=== PATIENT | female | born 1985 | race Caucasian/White ===

== ENCOUNTER → 2016-05-18 | Outpatient (CLI) | payer OTHER | LOC: M SMT 08:55 | PROVIDERS: ATTEND Physician Assistant | DX: J01.01 Acute recurrent maxillary sinusitis (principal) ==

== ENCOUNTER → 2016-08-16 | Outpatient (REF) | payer OTHER | LOC: M LAB REF 17:22 | PROVIDERS: ATTEND Physician Assistant Medical | DX: R35.0 Frequency of micturition (principal) ==

== ENCOUNTER → 2017-01-08 | Outpatient (REF) | payer OTHER | LOC: M LAB REF 18:14 | PROVIDERS: ATTEND Physician Assistant | DX: J02.9 Acute pharyngitis, unspecified (principal) ==

== ENCOUNTER → 2017-03-29 | Outpatient (CLI) | payer OTHER | LOC: M SMT 11:01 | DX: D80.8 Other immunodeficiencies with predominantly antibody defects (principal) ==

== ENCOUNTER → 2017-04-11 | Outpatient (REF) | payer OTHER ==
[2017-04-12 15:50] LABS: INFLUENZA A AMPLIFICATION NEGATIVE (NEGATIVE); INFLUENZA B AMPLIFICATION NEGATIVE (NEGATIVE)
== END ==
LOC: M LAB REF 04-12 12:50
DX: J06.9 Acute upper respiratory infection, unspecified (principal)

== ENCOUNTER → 2017-12-23 | Outpatient (REF) | payer OTHER ==
[2017-12-23 18:27] LABS: THYROXINE (T4) 11.2 UG/DL (4.5-12.0)
[2017-12-23 18:27] LABS: FREE T3 2.3 PG/ML (2.2-4.0)
== END ==
LOC: M LABSMT 16:53
DX: E07.89 Other specified disorders of thyroid (principal)
CPT/HCPCS: 84443

== ENCOUNTER → 2018-03-10 | Outpatient (CLI) | payer OTHER ==
--- NOTE | 2018-03-10 15:44 | REP ---
Clinical: Anatomical evaluation. Comparison: 02/08/2018 . Findings: Examination demonstrates a single live intrauterine in cephalic presentation. motion is identified by technologist. Placenta is noted anterior and grade 1 without evidence for placenta previa or abruption. Amniotic fluid volume is normal. Cervix measures 4.4 cm in length and appears closed. Nuchal cord cannot be excluded. Gestational age by LMP 25 weeks 3 days with KECIA 06/20/2018 . Gestational age by current measurements 25 weeks 5 days with KECIA 06/18/2018 . FHR equals 141 beats per minute. Estimated weight 872 grams ( 59 percentile). Anatomical assessment demonstrates normal structures including cranium, choroid plexus, cavum, cerebellum/posterior fossa, facial features, lungs, four-chamber heart/left ventricular outflow tract, diaphragm, stomach, cord insertion/three-vessel cord, kidneys/bladder, spine, and extremities. Impression: 1. Single live intrauterine in cephalic presentation demonstrating appropriate interval growth. Limited evaluation of the right cardiac ventricular outflow tract again noted. Remainder of the anatomical assessment is complete and normal. 2. Nuchal cord cannot be excluded. Electronically Signed by Julio Mejía MD 03/10/2018 03:35 P
== END ==
LOC: M SMT 14:39
PROVIDERS: ATTEND Advanced Practice Midwife
DX: Z36.89 Encounter for other specified antenatal screening (principal); Z3A.25 25 weeks gestation of pregnancy

== ENCOUNTER → 2018-03-30 | Outpatient (CLI) | payer OTHER ==
[2018-03-30 13:42] LABS: HEMATOCRIT 35.9 % (36.0-47.0); HEMOGLOBIN 11.9 g/dl (12.0-15.5); MEAN CORPUSCULAR HEMOGLOBIN 28.8 pg (27.0-33.0); MEAN CORPUSCULAR HGB CONC 33.1 g/dl (32.0-36.5); MEAN CORPUSCULAR VOLUME 86.9 fl (80.0-96.0); PLATELET COUNT, AUTOMATED 251 10^3/uL (150-450); RED BLOOD COUNT 4.13 10^6/uL (4.00-5.40); WHITE BLOOD COUNT 10.8 10^3/uL (4.0-10.0)
--- NOTE | 2018-03-31 08:53 | REP ---
Clinical: Anatomical evaluation. Comparison: 03/10/2018. Findings: Examination demonstrates a single live intrauterine in breech presentation. motion is identified by technologist. Placenta is noted anterior and grade I without evidence for placenta previa or abruption. Amniotic fluid volume is normal. Cervix measures 3.2 cm in length and appears closed. Nuchal cord noted. Gestational age by LMP 20 weeks 2 days with KECIA 06/20/2018 . Gestational age by current measurements 28 weeks 4 days with KECIA 06/18/2018 . FHR equals 153 beats per minute. Estimated weight 1264 grams ( 52nd percentile). Amniotic fluid index: 12.7 cm Umbilical cord SD ratio: 2.83 Anatomical assessment demonstrates normal structures including cranium, choroid plexus, cavum, cerebellum/posterior fossa, facial features, lungs, four-chamber heart/right ventricular outflow tract, diaphragm, stomach, three-vessel cord, kidneys/bladder, and lower extremities. Impression: 1. Single live intrauterine in breech presentation demonstrating appropriate interval growth. In conjunction with prior examination anatomical assessment is complete and normal. No gross abnormalities are identified. 2. Nuchal cord noted. Electronically Signed by Julio Mejía MD 03/31/2018 08:44 A
== END ==
LOC: M SMT 08:00
PROVIDERS: ATTEND Advanced Practice Midwife
DX: Z34.02 Encounter for supervision of normal first pregnancy, second trimester (principal); Z3A.28 28 weeks gestation of pregnancy

== ENCOUNTER → 2018-05-23 | Outpatient (REF) | payer OTHER | LOC: M LAB REF 17:08 | PROVIDERS: ATTEND Advanced Practice Midwife | DX: Z34.83 Encounter for supervision of other normal pregnancy, third trimester (principal); Z3A.00 Weeks of gestation of pregnancy not specified ==

== ENCOUNTER 2018-06-15 17:25 | Inpatient (IN) | payer OTHER ==
[2018-06-15] VITALS (11 sets, daily range): BP systolic 100–136; BP diastolic 57–91
[~2018-06-15] VITALS: Ht 165.1 cm; Wt 91.9 kg
[2018-06-15] MEDS ORDERED: PRENTAB9 PO (17:50)
[2018-06-15] MEDS ORDERED: miSOPROStol 50 MCG 1/2 TAB (S0191) SL SCH (18:00)
--- NOTE | 2018-06-15 18:45 | HPE ---
DATE OF ADMISSION: 06/15/2018 32-year-old female at 39 and 4/7th weeks gestation by 6 week ultrasound. EDC of 06/18/2018 presents for labor induction due to gestational hypertension. The patient had blood pressure of 150/92 in the office on the day of admission. Denies contractions or vaginal bleeding. COURSE: The patient received care in [place] at 19 weeks gestation on 01/26/2018. Her second trimester blood pressure is 102/68. MEDICAL HISTORY: 1. Mild asthma. PRIOR SURGICAL HISTORY: 1. Chama teeth removal. ALLERGIES: None. SOCIAL HISTORY: The patient is . She lives in [place]. She denies cigarettes or drugs. FAMILY HISTORY: Non-contributory. PHYSICAL EXAMINATION: Blood pressure 140/90, weight 206. She is in no apparent distress. Head and neck exam is normal. Lungs are clear. Heart regular rate and rhythm. Abdomen nontender and gravid. heart tones category 1. Contractions irregular. Sterile vaginal exam, 2 cm, 90% -2. Vertex extremity is nontender. LABS: Blood type B positive. Rubella immune. RPR nonreactive. Diabetes screen 49, GBS negative. ASSESSMENT: 32-year-old G1 at 39 and 3/7th weeks gestation who presents with gestational hypertension. PLAN: Is for admission 06/15/2018. We will move towards delivery via labor induction.
[2018-06-15 18:46] LABS: HEMATOCRIT 37.9 % (36.0-47.0); HEMOGLOBIN 12.8 g/dl (12.0-15.5); MEAN CORPUSCULAR HEMOGLOBIN 28.9 pg (27.0-33.0); MEAN CORPUSCULAR HGB CONC 33.8 g/dl (32.0-36.5); MEAN CORPUSCULAR VOLUME 85.6 fl (80.0-96.0); PLATELET COUNT, AUTOMATED 218 10^3/uL (150-450); RED BLOOD COUNT 4.43 10^6/uL (4.00-5.40); WHITE BLOOD COUNT 8.6 10^3/uL (4.0-10.0)
[2018-06-15] MEDS ORDERED: OXYTOCIN DRIP 30 UNITS in APPROPRIATE DILUENT 1 EA IV SCH (21:30)
[2018-06-15] MEDS ORDERED: PROMETHAZINE INJ 25 MG/ML VIAL (J2550) IV ONE (21:30)
[2018-06-15] MEDS ORDERED: BUTORPHANOL 2 MG/ML INJ (J0595) IV ONE (21:30)
[2018-06-15] MEDS: LR 1,000 ML IV SCH (22:45)
[2018-06-16] VITALS (50 sets, daily range): BP systolic 96–161; BP diastolic 52–95
[2018-06-16] MEDS ORDERED: FENTANYL 2MCG/ML ROPIVACAINE 0.2% IN 0.9% NACL 100ML IVBAG As Ordered ONE (00:57)
[2018-06-16] MEDS ORDERED: FENTANYL/ROPIVACAINE/NACL BAG 100 ML EPIDURAL SCH (02:45)
[2018-06-16] MEDS ORDERED: REFRIGERATOR IV KEYS XX PRN (02:45)
[2018-06-16] MEDS ORDERED: ONDANSETRON 4MG/2ML VIAL (J2405) IV PRN (02:45)
[2018-06-16] MEDS ORDERED: EPIDURAL/PCA KEYS XX PRN (02:45)
[2018-06-16] MEDS ORDERED: EPIDURAL COMMENT XX SCH (02:45)
[2018-06-16] MEDS ORDERED: ePHEDrine SULFATE 25 MG/5 ML(5MG/ML) SYRINGE IV PRN (02:45)
[2018-06-16] MEDS ORDERED: NALOXONE INJ 0.4 MG/1 ML VIAL (J2310) IV PRN (02:45)
[2018-06-16] MEDS ORDERED: LACTATED RINGER'S 1000 ML IV PRN (02:45)
[2018-06-16] MEDS ORDERED: diphenhydrAMINE INJ 50MG/ML VIAL (J1200) IV PRN (02:45)
[2018-06-16] MEDS: LR 1,000 ML IV SCH (08:15)
--- NOTE | 2018-06-16 08:53 | IPNPDOC ---
Text Note Date of Service The patient was seen on 06/16/18. NOTE Pitocin @ 10mu Has been pushing 1.5 hours UC Q 2-3 minutes x 60 seconds FH 135, prolonged acceleration 170-200 post push that resolved to baseline, Cat I Minimal descent following pushing efforts. Dr June notifed and will evaluate pt. A-FIB/CHADSVASC A-FIB History Current/History of A-Fib/PAF?: No Current Oral Anticoagulant The: No VS,Fishbone, I+O VS, Fishbone, I+O Laboratory Tests 06/15/18 18:19 Red Blood Count 4.43, Mean Corpuscular Volume 85.6, Mean Corpuscular Hemoglobin 28.9, Mean Corpuscular Hemoglobin Concent 33.8, Red Cell Distribution Width 14.2 Vital Signs Date Time Temp Pulse Resp B/P (MAP) Pulse Ox O2 Delivery O2 Flow Rate FiO2 06/16/18 04:52 98.2 74 16 107/60 (76) Libertad Villalobos CNM June 16, 2018 08:53
[2018-06-16 11:01] LABS: CORD GAS ABE A -10.7; CORD GAS HCO3 A 20.3 MEQ/L; CORD GAS O2 SAT A 47.4 %; CORD GAS PCO2 A 68.2 mmHg; CORD GAS PH A 7.092 UNITS; CORD GAS PO2 A 28.5 mmHg; CORD GAS SBC A 15.1 MEQ/L; CORD GAS TCO2 A 22.4 MEQ/L
[2018-06-16 11:03] LABS: CORD GAS ABE V -7.1; CORD GAS HCO3 V 18.8 MEQ/L; CORD GAS O2 SAT V 78.6 %; CORD GAS PCO2 V 39.3 mmHg; CORD GAS PH V 7.298 UNITS; CORD GAS PO2 V 37.4 mmHg; CORD GAS SBC V 18.4 MEQ/L
[2018-06-16] MEDS ORDERED: MEASLES,MUMPS,RUBELLA VACCINE INJ (MMR-II) (90707) SC SCH (12:00)
[2018-06-16] MEDS ORDERED: DOCUSATE SODIUM 100 MG CAP PO PRN (12:00)
[2018-06-16] MEDS ORDERED: ANUSOL HC CREAM 30GM TOP PRN (12:00)
[2018-06-16] MEDS ORDERED: RHOGAM 300 MCG (1500 IU) INJ (J2790) IM SCH (12:00)
[2018-06-16] MEDS ORDERED: MOM 30ML SUSPENSION UDC PO PRN (12:00)
[2018-06-16] MEDS ORDERED: DIBUCAINE 1% OINTMENT 30GM TOP PRN (12:00)
[2018-06-16] MEDS: METHYLERGONOVINE MALEATE 0.2 MG TAB PO SCH ×2 (12:11→19:16)
--- NOTE | 2018-06-16 13:02 | DNPDOC ---
[facility] Delivery Note Delivery Note DATE OF DELIVERY: 06/16/18 PREDELIVERY DIAGNOSIS: 39-5/7 weeks' gestation and labor. Gestational hypertension POST DELIVERY DIAGNOSIS: Delivered. PROCEDURE: Spontaneous vaginal delivery. PROVIDER: Libertad Villalobos CNM ANESTHESIA: Epidural. ESTIMATED BLOOD LOSS: 500 mL. FINDINGS: 8 pound 12 ounce, 3980gm male , Score 9/9, tight nuchal cord times 1. DELIVERY SUMMARY: Patient is a 32-year-old 1 now para 1-0-0-1 who was admitted to labor and delivery for induction of labor due to gestational hypertension. She received misoprostol and pitocin and labor did ensue. She utilized an epidural for labor coping. SROM clear fluid 0020. FD 0540. Labored down till 0700 at which time she began pushing. Viable male delivered ANTHONY, restituted to ROP through tight nuchal cord @ 1043. Spontaneous respirations with stimulation, transitioned on maternal abdomen. Cord gases obtained, arterial 7.092 with BE -10.7 and venous 7.298 with BE -7.1. Cord doubly clamped and cut by FOB under my direction once pulsations ceased. Apgars 9/9. Placenta luz, intact with 3v cord @ 1057. Fundus firmed with massage and IV pitocin bolus. EBL 500ml. Perineum intact however bilateral sulcus lacerations and Right periurethral laceration were noted and repaired in the usual fashion. Parents are naming their son Efren. Sponge, sharp and instrument count correct. Libertad Villalobos CNM June 16, 2018 12:57
[2018-06-16] MEDS: IBUPROFEN 800 MG TAB PO PRN (14:58)
[2018-06-16] MEDS: ACETAMINOPHEN 500 MG TAB PO PRN (20:40)
[2018-06-17] MEDS: METHYLERGONOVINE MALEATE 0.2 MG TAB PO SCH ×4 (00:41→17:26)
[2018-06-17] MEDS: IBUPROFEN 800 MG TAB PO PRN ×2 (05:22→17:30)
[2018-06-17 06:00] VITALS: BP 107/60
--- NOTE | 2018-06-17 07:30 | IPNPDOC ---
Text Note Date of Service The patient was seen on 06/17/18. NOTE PPD #1 Feels well. Adequate pain control. . Voiding VSS, afebrile, normotensive Breasts soft, nipples intact Fundus firm, NT, down 1 FB Lochia rubra light without odor Perineum well approximated Routine care. Anticipate D/C in am A-FIB/CHADSVASC A-FIB History Current/History of A-Fib/PAF?: No Current Oral Anticoagulant The: No VS,Fishbone, I+O VS, Fishbone, I+O Vital Signs Date Time Temp Pulse Resp B/P (MAP) Pulse Ox O2 Delivery O2 Flow Rate FiO2 06/17/18 06:00 98.2 89 16 107/60 (76) 98 l I&O- Last 24 Hours up to 6 AM 06/17/18 06:00 Intake Total 3500 ml Output Total 500 ml Balance 3000 ml Libertad Villalobos CNM June 17, 2018 07:30
[2018-06-17] MEDS: PRENATAL VITAMINS CHEWABLE TABLET PO SCH (08:11)
[2018-06-17] MEDS: ACETAMINOPHEN 500 MG TAB PO PRN (12:12)
[2018-06-17 18:00] VITALS: BP 131/85
[2018-06-18 06:03] VITALS: BP 130/76
[2018-06-18] MEDS: PRENATAL VITAMINS CHEWABLE TABLET PO SCH (08:39)
[2018-06-18] MEDS: IBUPROFEN 800 MG TAB PO PRN (08:40)
[2018-06-18] MEDS ORDERED: ACET-683 PO (11:14)
[2018-06-18] MEDS ORDERED: IBUP80TA PO (11:14)
--- NOTE | 2018-06-18 11:18 | NUR ---
Progress Note PPD#2 Pain well controlled, voiding spontaneously, tolerating regular diet, ambulating without difficulty, lochia decreasing/minimal. VSS/normotensive, normal HR, afebrile Abd: soft,nt,nd Fundus firm U-2cm A/P: PPD#2. Meeting d/c criteria -Routine instructions and precautions (fever/infectious, pain, bleeding) reviewed -Follow up in 6-8 weeks or sooner VERNON White DO
== END 2018-06-18 12:47 | disposition home or self-care (01) | DRG 807 ==
LOC: M LDI 17:25 → M OBS 06-16 14:36
PROVIDERS: ADMIT Specialist; ATTEND Advanced Practice Midwife
PROC: 3E0P7GC Introduction of Other Therapeutic Substance into Female Reproductive, Via Natural or Artificial Opening (ICD-10-PCS; 2018-06-15)
PROC: 10E0XZZ Delivery of Products of Conception, External Approach (ICD-10-PCS; principal; 2018-06-16)
PROC: 0UQMXZZ Repair Vulva, External Approach (ICD-10-PCS; 2018-06-16)
DX: O13.3 Gestational [pregnancy-induced] hypertension without significant proteinuria, third trimester (principal); Z37.0 Single live birth; Z3A.39 39 weeks gestation of pregnancy; O69.1XX0 Labor and delivery complicated by cord around neck, with compression, not applicable or unspecified; O71.82 Other specified trauma to perineum and vulva

== ENCOUNTER → 2018-06-15 | Outpatient (CLI) | payer OTHER ==
[~2018-06-15] MED LIST: ACET-683 PO; IBUP80TA PO; PRENTAB9 PO
[2018-06-15 18:47] LABS: BASO # 0.1 10^3/uL (0.0-0.2); BASO % 0.7 % (0.0-1.0); EOS % 0.3 % (0.0-3.0); HEMOGLOBIN 13.1 g/dl (12.0-15.5); LYMPH # 1.9 10^3/uL (1.5-4.5); LYMPH % 20.5 % (24.0-44.0); MEAN CORPUSCULAR HEMOGLOBIN 29.6 pg (27.0-33.0); MEAN CORPUSCULAR HGB CONC 33.6 g/dl (32.0-36.5); MONO # 0.7 10^3/uL (0.0-0.8); NEUTROPHILS # 6.4 10^3/uL (1.8-7.7); NEUTROPHILS % 69.1 % (36.0-66.0); PLATELET COUNT, AUTOMATED 220 10^3/uL (150-450); RED BLOOD COUNT 4.43 10^6/uL (4.00-5.40); WHITE BLOOD COUNT 9.2 10^3/uL (4.0-10.0)
[2018-06-15 19:12] LABS: CREATININE,RANDOM URINE 54.9 MG/DL; TOTAL PROTEIN,RANDOM URINE 10.3 MG/DL (0.0-12.0)
[2018-06-15 19:13] LABS: ALT/SGPT 18 U/L (12-78); BILIRUBIN,TOTAL 0.3 MG/DL (0.2-1.0); CREATININE FOR GFR 0.71 MG/DL (0.55-1.30); GLOMERULAR FILTRATION RATE > 60.0 (>60); LDH LACTATE DEHYDROGENASE 194 U/L (84-246); URIC ACID 5.1 MG/DL (2.6-6.0)
== END ==
LOC: M SMT 15:56
PROVIDERS: ATTEND Advanced Practice Midwife
DX: Z34.83 Encounter for supervision of other normal pregnancy, third trimester (principal); Z3A.00 Weeks of gestation of pregnancy not specified; R03.0 Elevated blood-pressure reading, without diagnosis of hypertension

== ENCOUNTER → 2018-08-17 | Outpatient (REF) | payer OTHER ==
[2018-08-22 14:07] LABS: HPV HYBRID CAPTURE II Negative (Negative)
== END ==
LOC: M LAB REF 17:03
PROVIDERS: ATTEND Advanced Practice Midwife
DX: Z12.4 Encounter for screening for malignant neoplasm of cervix (principal)
CPT/HCPCS: 87624; G0123

== ENCOUNTER → 2019-01-15 | Outpatient (REF) | payer OTHER | LOC: M LAB REF 16:43 | PROVIDERS: ATTEND Physician Assistant | DX: J03.90 Acute tonsillitis, unspecified (principal) ==

== ENCOUNTER → 2019-11-07 | Outpatient (CLI) | payer OTHER ==
[2019-11-07 17:20] LABS: BASO # 0.1 10^3/uL (0.0-0.2); BASO % 0.9 % (0.0-1.0); EOS % 0.6 % (0.0-3.0); HEMATOCRIT 39.1 % (36.0-47.0); HEMOGLOBIN 13.1 g/dl (12.0-15.5); LYMPH # 1.8 10^3/uL (1.5-5.0); LYMPH % 25.9 % (24.0-44.0); MEAN CORPUSCULAR HEMOGLOBIN 28.7 pg (27.0-33.0); MEAN CORPUSCULAR HGB CONC 33.5 g/dl (32.0-36.5); MEAN CORPUSCULAR VOLUME 85.7 fl (80.0-96.0); MONO # 0.5 10^3/uL (0.0-0.8); MONO % 6.9 % (0.0-5.0); NEUTROPHILS # 4.5 10^3/uL (1.5-8.5); NEUTROPHILS % 65.3 % (36.0-66.0); PLATELET COUNT, AUTOMATED 273 10^3/uL (150-450); RED BLOOD COUNT 4.56 10^6/uL (4.00-5.40); WHITE BLOOD COUNT 6.9 10^3/uL (4.0-10.0)
[2019-11-07 18:40] LABS: HEPATITIS C VIRUS ABY INDEX 0.1 INDEX (<0.8); HIV 1&2 SCREEN CENTAUR NEGATIVE (NEGATIVE)
== END ==
LOC: M PLALAB 15:37
PROVIDERS: ATTEND Obstetrics & Gynecology
DX: Z34.81 Encounter for supervision of other normal pregnancy, first trimester (principal); Z3A.00 Weeks of gestation of pregnancy not specified

== ENCOUNTER → 2020-01-29 | Outpatient (CLI) | payer OTHER ==
--- NOTE | 2020-01-29 17:47 | REP ---
INDICATION: ANATOMY. COMPARISON: None TECHNIQUE: Trans abdominal imaging FINDINGS: Multiple ultrasonographic images of the gravid uterus shows a single living intrauterine gestation in the cephalic presentation. The placenta is anterior and not low lying. The plantar a hernández of the heart is a heart rate of 160 beats per minute. The subjective amniotic fluid volume is within normal limits. The cervix measures 4.7 cm in length and is closed. BPD 4.9 cm 20 weeks 5 days. HC 18.4 cm 20 weeks 5 days AC 16.8 cm 21 weeks 6 days FL 3.9 cm 22 weeks 5 days The estimated weight is 465 g which is at the 87th percentile for a 21 week 1 day gestational age. The anatomical structures seen is unremarkable are as follows: Thalami, cavum septum pellucidum, cerebellum, cisterna magna, cerebral ventricles, spine, cord insertion, urinary bladder, stomach, upper lip, extremities, and three-vessel umbilical cord. Structure suboptimally visualized are as follows: Four-chamber heart, ventricular outflow tracts, and kidneys IMPRESSION: Single living intrauterine gestation as described above an estimated gestational age of 21 weeks 4 days via composite criteria and an estimated date of delivery of 06/06/2020 by today's exam. No anomalies were detected, however, I recommend a follow-up examination to re-evaluate does structures not well seen today as described above. <Electronically signed by Young Delaney > 01/29/20 [id number]
== END ==
LOC: M WHC 14:56
PROVIDERS: ATTEND Advanced Practice Midwife
DX: Z36.89 Encounter for other specified antenatal screening (principal); Z3A.21 21 weeks gestation of pregnancy

== ENCOUNTER → 2020-03-07 | Outpatient (CLI) | payer OTHER ==
--- NOTE | 2020-03-07 18:45 | REP ---
INDICATION: F/U ANATOMY/GROWTH COMPARISON: 01/27/2020 TECHNIQUE: Transabdominal obstetrical ultrasound with color Doppler evaluation. FINDINGS: Examination demonstrates a single live intrauterine in breech presentation. motion is identified by technologist. Placenta is noted anterior/fundal and grade 1 without evidence for placenta previa or abruption. Amniotic fluid volume is normal. Cervix measures 3.0 cm in length and appears closed.. Gestational age by LMP twenty-six weeks 4 days with KECIA 06/09/2020. Gestational age by current measurements 27 weeks 1 day with KECIA 06/05/2020. FHR equals 142 beats per minute. Estimated weight 976 grams (44thpercentile). Anatomical assessment demonstrates normal structures including cranium, facial features, lungs, four-chamber heart/ventricular outflow tracts, diaphragm, stomach, cord insertion/three-vessel cord, kidneys/bladder. IMPRESSION: 1. Single live intrauterine in breech presentation demonstrating appropriate interval growth. 2. In conjunction with prior examination anatomical assessment is complete and normal. <Electronically signed by Julio Mejía > 03/07/20 [id number]
== END ==
LOC: M WHC 14:55
PROVIDERS: ATTEND Advanced Practice Midwife
DX: O32.1XX0 Maternal care for breech presentation, not applicable or unspecified (principal); Z3A.26 26 weeks gestation of pregnancy

== ENCOUNTER → 2020-03-26 | Outpatient (REF) | payer OTHER ==
[2020-03-26 16:07] LABS: HEMATOCRIT 37.8 % (36.0-47.0); HEMOGLOBIN 12.1 g/dl (12.0-15.5); MEAN CORPUSCULAR HEMOGLOBIN 28.6 pg (27.0-33.0); MEAN CORPUSCULAR VOLUME 89.4 fl (80.0-96.0); PLATELET COUNT, AUTOMATED 271 10^3/uL (150-450); RED BLOOD COUNT 4.23 10^6/uL (4.00-5.40); WHITE BLOOD COUNT 8.6 10^3/uL (4.0-10.0)
== END ==
LOC: M PLALAB 10:30
PROVIDERS: ATTEND Advanced Practice Midwife
DX: Z36.89 Encounter for other specified antenatal screening (principal); Z3A.25 25 weeks gestation of pregnancy

== ENCOUNTER → 2020-05-13 | Outpatient (REF) | payer OTHER | LOC: M SFHCWAGY 10:42 | PROVIDERS: ATTEND Advanced Practice Midwife | DX: Z36.89 Encounter for other specified antenatal screening (principal); Z3A.36 36 weeks gestation of pregnancy ==

== ENCOUNTER → 2020-05-28 | Outpatient (CLI) | payer OTHER ==
--- NOTE | 2020-05-28 12:27 | REP ---
INDICATION: UTERINE SIZE DATE DISCREPANCY,GROWTH COMPARISON: 03/07/2020 TECHNIQUE: Transabdominal obstetrical ultrasound with color Doppler evaluation. FINDINGS: Examination demonstrates a single live intrauterine in cephalic presentation. motion is identified by technologist. Placenta is noted anterior and grade 1 without evidence for placenta previa or abruption. Amniotic fluid volume is normal. Cervix appears closed.. Gestational age by LMP and 1st U/S 30 weeks 2 days with KECIA 06/09/2020. Gestational age by current measurements 30 weeks 2 days with KECIA 06/09/2020. FHR equals 139 beats per minute. NAA: 11.7 cm (7.3-23.5) Estimated weight 3461 grams (65thpercentile). Umbilical artery SD ratio: 2.12 (1.54-3.34) IMPRESSION: Single live advanced gestation in cephalic presentation demonstrating appropriate estimated weight and growth. Amniotic fluid volume is normal. <Electronically signed by Julio Mejía > 05/28/20 [id number]
== END ==
LOC: M WHC 11:33
PROVIDERS: ATTEND Advanced Practice Midwife
DX: O26.849 Uterine size-date discrepancy, unspecified trimester (principal); Z3A.30 30 weeks gestation of pregnancy

== ENCOUNTER → 2020-06-02 | Outpatient (CLI) | payer OTHER | LOC: M LABSMTC 14:26 | PROVIDERS: ATTEND Specialist | DX: Z01.818 Encounter for other preprocedural examination (principal); Z20.822 Contact with and (suspected) exposure to COVID-19 ==

== ENCOUNTER 2020-06-07 11:39 | Inpatient (IN) | payer OTHER ==
[2020-06-07] VITALS (14 sets, daily range): BP systolic 94–133; BP diastolic 51–88
[~2020-06-07] VITALS: Ht 165.1 cm; Wt 85.4 kg
[2020-06-07] MEDS ORDERED: VITATAB74 PO (12:01)
[2020-06-07] MEDS ORDERED: LACTATED RINGER'S 1000 ML IV STA (13:07)
[2020-06-07] MEDS ORDERED: TRANEXAMIC ACID INJection 1,000 MG in NS 100 ML IV PRN (13:10)
[2020-06-07] MEDS ORDERED: OXYTOCIN INJ 10 UNITS/ML VIAL (J2590) IM PRN (13:10)
[2020-06-07] MEDS ORDERED: OXYTOCIN DRIP 30 UNITS in IV 1 EA IV PRN ×6 (13:10)
[2020-06-07] MEDS ORDERED: LIDOCAINE 1% MDV 20ML VIAL INFIL PRN (13:10)
[2020-06-07] MEDS ORDERED: CARBOPROST TROMETHAMINE 250 MCG/ML AMP IM PRN (13:10)
[2020-06-07] MEDS ORDERED: METHYLERGONOVINE MALEATE 0.2 MG/ML VIAL (J2210) IM PRN (13:10)
[2020-06-07] MEDS ORDERED: OXYTOCIN INJ 10 UNITS/ML VIAL (J2590) IV PRN (13:10)
[2020-06-07] MEDS ORDERED: LR 1,000 ML IV SCH (13:10)
--- NOTE | 2020-06-07 13:26 | HPEPDOC ---
Obstetrical History & Physical General Date of Admission June 07, 2020 at 11:39 History of Present Illness 34-year-old at 39+5 weeks gestation. Presents for an induction of labor. Indication for induction: Elective non-medically indicated She denies vaginal bleeding, loss of fluid or painful, frequent uterine contractions. She reports regular movement. She denies headache, visual changes, right upper quadrant pain, shortness of breath or chest pain. course: Uncomplicated PMH: None SH:. None Meds: vitamin All: Diclegis (rash/hives) OIL PROSPECTING OBSERVER: No STI or dysplasia OB: G1, 2019: 39+5, 8lbs 12 oz. PPH/500ml, IOL for GHTN. Sochx: No tobacco, alcohol or drug use FamHx: none labs: Blood type B+, antibody screen negative, HepBsAg neg, HIV neg, rubella immune, Hep C antibody negative, RPR nonreactive, CT/GC neg, urine culture negative, 1 hour glucose challenge test 93, GBS negative Past Medical History Allergies Coded Allergies: doxylamine (Verified Allergy, Severe, 06/07/20) pyridoxine (Verified Allergy, Severe, 06/07/20) Medications Scheduled Mv-Mn/Iron/Folic Acid/Herb 190 (Vitamin D3 Complete Caplet) 1 Each Tablet, 1 TAB PO DAILY No.137/Iron/Folic Acd ( Vitamin Tablet) 1 Each Tablet, 1 TAB PO DAILY Scheduled PRN Acetaminophen (Acetaminophen) 500 Mg Tablet, 1,000 MG PO Q6HP PRN for PAIN SCALE 6-10 Ibuprofen (Ibuprofen) 800 Mg Tablet, 800 MG PO Q6HP PRN for PAIN SCALE 6-10 Physical Examination Physical Examination GENERAL: Alert and oriented times three. ABDOMEN: Gravid and non-tender to touch. FETUS: Is vertex (VTX) by sterile vaginal examination (SVE), fetus is vertex (VTX) by Radhames. HEART RATE: Regular rate and rhythm. LUNGS: Clear to auscultation (CTA). EXTREMITIES: No edema. No clonus. SVE: /-3, cephalic, posterior, intact, no bloody show EFM: Cat I [place]: ctxs are rare/irregular Vital Signs/I&O Vital Signs Date Time Temp Pulse Resp B/P (MAP) Pulse Ox O2 Delivery O2 Flow Rate FiO2 06/07/20 12:04 98.2 80 16 122/71 (88) Laboratory Data 24H LABS Laboratory Tests 2 06/07/20 12:00: Serology Scanned Report Hepatitis B Testing Assessment/Plan Assessment 34yo at 39+5 weeks. Reassuring maternal and status. Requesting IOL. Plan Admit and orient. Customer Service Professional and consent. Labs and intravenous (IV) per unit protocol. Counseled on cervical ripening with misoprostol, Pitocin and induction of labor (IOL). Anticipate . C-S as appropriate. CODY GOMEZ DO June 07, 2020 13:26
[2020-06-07] MEDS: miSOPROStol 50MCG 1/2 TABLET SL SCH ×2 (13:41→17:51)
[2020-06-07 14:19] LABS: HEMOGLOBIN 11.9 g/dl (12.0-15.5); MEAN CORPUSCULAR HEMOGLOBIN 27.6 pg (27.0-33.0); MEAN CORPUSCULAR HGB CONC 33.1 g/dl (32.0-36.5); MEAN CORPUSCULAR VOLUME 83.5 fl (80.0-96.0); PLATELET COUNT, AUTOMATED 246 10^3/uL (150-450); RED BLOOD COUNT 4.31 10^6/uL (4.00-5.40)
--- NOTE | 2020-06-07 21:38 | IPNPDOC ---
Obstetrical Progress Note Date of Service June 07, 2020 Subjective Patient feeling more uncomfortable with contractions. She's received two doses of Cytotec 50mcg . No LOF/VB/uctx. Objective Vital Signs Date Time Temp Pulse Resp B/P (MAP) Pulse Ox O2 Delivery O2 Flow Rate FiO2 06/07/20 19:08 98.1 80 16 116/61 (79) Assessment Heart Rate Tracing: Category I Tocometer Contractions: Yes Frequency: irregular Sterile Vaginal Examination Dilation: 4 cm Effacement (%): 50% Station: -3 Cervical Consistency: Soft Cervical Position: Posterior Postion/Presentation: Cephalic presentation (well applied) Assessment and Plan Status: Reassuring Anticipate: Vaginal Delivery Additional Comments Reassuring maternal and status. Favorable cervix. Start Pitocin low dose protocol. CODY GOMEZ DO June 07, 2020 21:38
[2020-06-07] MEDS ORDERED: OXYTOCIN DRIP 30 UNITS in IV 1 EA IV SCH (21:40)
[2020-06-07] MEDS ORDERED: FENTANYL 2MCG/ML ROPIVACAINE 0.2% IN 0.9% NACL 100ML IVBAG As Ordered ONE (23:04)
[2020-06-07] MEDS ORDERED: EPIDURAL/PCA KEYS XX PRN (23:50)
[2020-06-07] MEDS ORDERED: LACTATED RINGER'S 1000 ML IV PRN (23:50)
[2020-06-07] MEDS ORDERED: FENTANYL/ROPIVACAINE/NACL BAG 100 ML EPIDURAL SCH (23:50)
[2020-06-07] MEDS ORDERED: diphenhydrAMINE 50MG/ML VIAL (J1200) IV PRN (23:50)
[2020-06-07] MEDS ORDERED: EPIDURAL COMMENT XX SCH (23:50)
[2020-06-07] MEDS ORDERED: NALOXONE INJ 0.4MG/1ML VIAL (J2310 PER 1MG) IV PRN (23:50)
[2020-06-07] MEDS ORDERED: ePHEDrine SULFATE 25 MG/5 ML(5MG/ML) SYRINGE IV PRN (23:50)
[2020-06-07] MEDS ORDERED: REFRIGERATOR IV KEYS XX PRN (23:50)
[2020-06-08] VITALS (20 sets, daily range): BP systolic 106–150; BP diastolic 52–81
--- NOTE | 2020-06-08 00:59 | IPNPDOC ---
Obstetrical Progress Note Date of Service June 08, 2020 Subjective Pt comfortable with epidural. No LOF/VB. Objective Vital Signs Date Time Temp Pulse Resp B/P (MAP) Pulse Ox O2 Delivery O2 Flow Rate FiO2 06/07/20 23:57 86 133/88 (103) 06/07/20 23:40 98.6 18 Assessment Heart Rate Tracing: Category I Tocometer Contractions: Yes Frequency: every 2-5 min. (Pit at 6mU/min) Sterile Vaginal Examination Dilation: 5 cm Effacement (%): 90% Station: -1 (AROM,clear) Cervical Consistency: Soft Cervical Position: Anterior Postion/Presentation: Cephalic presentation Assessment and Plan Status: Reassuring Anticipate: Vaginal Delivery Additional Comments Normal labor progression. Active phase of labor. Reassuring maternal and status. AROM clear. Epidural working well. CODY GOMEZ DO June 08, 2020 00:59
[2020-06-08] MEDS ORDERED: ACETAMINOPHEN TAB 650MG DOSE (2X325MG) PO PRN (03:00)
[2020-06-08] MEDS ORDERED: OXYTOCIN DRIP 30 UNITS in IV 1 EA IV SCH (03:00)
[2020-06-08] MEDS ORDERED: ONDANSETRON 4MG/2ML VIAL IV PRN (03:00)
[2020-06-08] MEDS ORDERED: RHOGAM 300 MCG (1500 IU) INJ (J2790) IM SCH (03:00)
[2020-06-08] MEDS ORDERED: LR 1,000 ML IV SCH (03:00)
[2020-06-08] MEDS ORDERED: MEASLES,MUMPS,RUBELLA VACCINE INJ (MMR-II) (90707) SC SCH (03:00)
[2020-06-08] MEDS ORDERED: DIBUCAINE 1% OINTMENT 30GM TOP PRN (03:00)
[2020-06-08] MEDS ORDERED: IBUPROFEN 800 MG TAB PO PRN (03:00)
[2020-06-08] MEDS ORDERED: DOCUSATE SODIUM 100MG CAPSULE PO PRN (03:00)
--- NOTE | 2020-06-08 03:07 | DNPDOC ---
[facility] Delivery Note Delivery Note DATE OF DELIVERY: 06/08/2020 TIME OF DELIVERY: 0248 Spontaneous vaginal delivery. SR. SOCIAL MEDIA & MOBILE MANAGER: Dr. Roberto White DO FACOG ANESTHESIA: Epidural LACERATION: none ESTIMATED BLOOD LOSS: 200 mL. FINDINGS: 8 pound 5 ounce (3780g) male infant, Score 9 and 9. DELIVERY SUMMARY: The active phase and second stage of labor progressed in normal fashion.. She received Pitocin augmentation throughout her labor course. The head delivered in the DARY position, and restituted LOT. No nuchal cord was noted. The anterior shoulder delivered with gentle downward guidance and the remainder of the body delivered with ease. The baby was placed on the patient's chest. Delayed cord clamping occurred for approximately 1 minute. The cord was then doubly clamped and cut. IV Pitocin was bolused to actively manage the t hird stage of labor. The placenta delivered intact without any difficulty within 10 minutes of delivery. The uterine fundus was noted to be firm and 2 cm below the umbilicus. The cervix, vagina, vulva and perineum were inspected. No lacerations were noted. Excellent hemostasis was noted. Sponge, needle and instrument counts were correct per protocol. DO EDGAR Santacruz JONATHAN R. DO June 08, 2020 03:07
[2020-06-08] MEDS: PRENATAL VITAMINS CHEWABLE TABLET PO SCH (08:44)
[2020-06-08] MEDS: ACETAMINOPHEN 500 MG TAB PO PRN ×2 (08:45→19:30)
[2020-06-08] MEDS: IBUPROFEN 600MG TAB PO PRN (15:28)
[2020-06-09] MEDS: IBUPROFEN 600MG TAB PO PRN ×3 (02:56→20:09)
[2020-06-09 05:57] VITALS: BP 104/59
[2020-06-09] MEDS: PRENATAL VITAMINS CHEWABLE TABLET PO SCH (07:48)
[2020-06-09] MEDS: ACETAMINOPHEN 500 MG TAB PO PRN (07:49)
[2020-06-09 18:01] VITALS: BP 103/65
[2020-06-10 06:00] VITALS: BP 105/57
[2020-06-10] MEDS: PRENATAL VITAMINS CHEWABLE TABLET PO SCH (08:18)
[2020-06-10] MEDS: IBUPROFEN 600MG TAB PO PRN (08:19)
[2020-06-10] MEDS ORDERED: IBUP80TA PO (09:11)
[2020-06-10] MEDS ORDERED: ACET-683 PO (09:11)
== END 2020-06-10 12:03 | disposition home or self-care (01) | DRG 807 ==
LOC: M LDI 11:39 → M OBS 06-08 05:28
PROVIDERS: ADMIT Obstetrics & Gynecology; ATTEND Obstetrics & Gynecology
PROC: 3E0P7GC Introduction of Other Therapeutic Substance into Female Reproductive, Via Natural or Artificial Opening (ICD-10-PCS; 2020-06-07)
PROC: 10E0XZZ Delivery of Products of Conception, External Approach (ICD-10-PCS; principal; 2020-06-08)
PROC: 10907ZC Drainage of Amniotic Fluid, Therapeutic from Products of Conception, Via Natural or Artificial Opening (ICD-10-PCS; 2020-06-08)
DX: O80 Encounter for full-term uncomplicated delivery (principal); Z37.0 Single live birth; Z3A.39 39 weeks gestation of pregnancy

== ENCOUNTER → 2020-11-07 | Outpatient (REF) | payer OTHER ==
[~2020-11-07] MED LIST changes: +VITATAB74 PO
== END ==
LOC: M LAB REF 20:29
PROVIDERS: ATTEND Physician Assistant
DX: J06.9 Acute upper respiratory infection, unspecified (principal)

== ENCOUNTER → 2020-11-17 | Outpatient (CLI) | payer OTHER ==
[2020-11-17 18:12] LABS: BASO # 0.1 10^3/uL (0.0-0.2); BASO % 1.1 % (0.0-1.0); EOS # 0.1 10^3/uL (0.0-0.5); EOS % 1.1 % (0.0-3.0); HEMATOCRIT 44.4 % (36.0-47.0); HEMOGLOBIN 14.3 g/dl (12.0-15.5); LYMPH # 2.3 10^3/uL (1.5-5.0); LYMPH % 35.4 % (24.0-44.0); MEAN CORPUSCULAR HEMOGLOBIN 28.1 pg (27.0-33.0); MEAN CORPUSCULAR HGB CONC 32.2 g/dl (32.0-36.5); MEAN CORPUSCULAR VOLUME 87.2 fl (80.0-96.0); MONO # 0.5 10^3/uL (0.0-0.8); MONO % 7.2 % (2.0-8.0); NEUTROPHILS # 3.6 10^3/uL (1.5-8.5); NEUTROPHILS % 54.9 % (36.0-66.0); PLATELET COUNT, AUTOMATED 303 10^3/uL (150-450); RED BLOOD COUNT 5.09 10^6/uL (4.00-5.40); WHITE BLOOD COUNT 6.5 10^3/uL (4.0-10.0)
[2020-11-17 18:34] LABS: FREE T4 0.92 NG/DL (0.76-1.46); THYROID STIMULATING HORMONE 9.84 uIU/ML (0.358-3.740)
== END ==
LOC: M PLALAB 14:46
PROVIDERS: ATTEND Family Medicine
DX: Z13.29 Encounter for screening for other suspected endocrine disorder (principal); Z13.0 Encounter for screening for diseases of the blood and blood-forming organs and certain disorders involving the immune mechanism

== ENCOUNTER → 2020-12-31 | Outpatient (CLI) | payer OTHER ==
[2020-12-31 12:56] LABS: FREE T4 0.8 NG/DL (0.76-1.46); THYROGLOBULIN ANTIBODY 18.8 U/ML (<60.0); THYROID PEROXIDASE ANTIBODY 47.9 U/ML (<60.0); THYROID STIMULATING HORMONE 9.14 uIU/ML (0.358-3.740)
== END ==
LOC: M PLALAB 09:05
PROVIDERS: ATTEND Family Medicine
DX: E03.9 Hypothyroidism, unspecified (principal)

== ENCOUNTER → 2021-01-29 | Outpatient (CLI) | payer OTHER ==
[2021-01-29 13:56] LABS: FREE T4 0.91 NG/DL (0.76-1.46); THYROID PEROXIDASE ANTIBODY 53.7 U/ML (<60.0); THYROID STIMULATING HORMONE 6.27 uIU/ML (0.358-3.740)
== END ==
LOC: M PLALAB 10:49
PROVIDERS: ATTEND Nurse Practitioner Family
DX: E03.9 Hypothyroidism, unspecified (principal)

== ENCOUNTER → 2021-04-10 | Outpatient (REF) | payer OTHER ==
[2021-04-10 18:05] LABS: FREE T4 0.87 NG/DL (0.76-1.46); THYROID STIMULATING HORMONE 3.9 uIU/ML (0.358-3.740)
== END ==
LOC: M LAB REF 16:42
PROVIDERS: ATTEND Nurse Practitioner Family
DX: E03.9 Hypothyroidism, unspecified (principal)

== ENCOUNTER → 2021-09-03 | Outpatient (REF) | payer OTHER ==
[2021-09-03 18:04] LABS: FREE T4 0.93 NG/DL (0.76-1.46); THYROID STIMULATING HORMONE 4.27 uIU/ML (0.358-3.740)
== END ==
LOC: M LABWUC 15:31
PROVIDERS: ATTEND Nurse Practitioner Family
DX: E03.9 Hypothyroidism, unspecified (principal)

== ENCOUNTER → 2022-08-12 | Outpatient (REF) | payer OTHER | LOC: M SFHCWAGY 13:03 | PROVIDERS: ATTEND Nurse Practitioner Family | DX: Z12.4 Encounter for screening for malignant neoplasm of cervix (principal) | CPT/HCPCS: 87624; G0123 ==

== ENCOUNTER → 2023-04-13 | Outpatient (REF) | payer OTHER | LOC: M LAB REF 11:54 | PROVIDERS: ATTEND Nurse Practitioner Adult Health | DX: E03.9 Hypothyroidism, unspecified (principal) ==

== ENCOUNTER → 2023-06-14 | Outpatient (REF) | payer OTHER | LOC: M LAB REF 16:46 | PROVIDERS: ATTEND Nurse Practitioner Adult Health | DX: O90.5 Postpartum thyroiditis (principal) ==

== ENCOUNTER → 2023-07-28 | Outpatient (CLI) | payer OTHER ==
[2023-07-28 17:35] LABS: HEMATOCRIT 35.2 % (36.0-47.0); HEMOGLOBIN 12.1 g/dl (12.0-15.5); MEAN CORPUSCULAR HEMOGLOBIN 29.1 pg (27.0-33.0); MEAN CORPUSCULAR HGB CONC 34.4 g/dl (32.0-36.5); MEAN CORPUSCULAR VOLUME 84.6 fl (80.0-96.0); PLATELET COUNT, AUTOMATED 241 10^3/uL (150-450); RED BLOOD COUNT 4.16 10^6/uL (4.00-5.40); WHITE BLOOD COUNT 5.5 10^3/uL (4.0-10.0)
[2023-07-28 18:09] LABS: HIV 1&2 SCREEN NEGATIVE (NEGATIVE)
[2023-07-28 18:18] LABS: HEPATITIS C VIRUS ABY INDEX < 0.02 INDEX (<0.8)
[2023-07-28 20:30] LABS: GC DNA AMPLIFICATION NEGATIVE (NEGATIVE)
== END ==
LOC: M PLALAB 15:30
PROVIDERS: ATTEND Advanced Practice Midwife
DX: Z34.81 Encounter for supervision of other normal pregnancy, first trimester (principal)

== ENCOUNTER 2023-09-09 08:20 | Observation (INO) | payer OTHER ==
[~2023-09-09] VITALS: Ht 162.6 cm; Wt 73.3 kg
[~2023-09-09 08:20] MED LIST changes: +COLA100C5 PO
[2023-09-09] MEDS ORDERED: LR 1,000 ML IV SCH (08:25)
[2023-09-09] MEDS ORDERED: fentaNYL 100 MCG/2 ML INJECTION As Ordered ONE (08:40)
[2023-09-09] MEDS ORDERED: LIDOCAINE 2% 100MG/5ML SDV (FOR ANES.) As Ordered ONE (08:40)
[2023-09-09] MEDS ORDERED: MIDAZOLAM INJ 2MG/2ML VIAL As Ordered ONE (08:40)
[2023-09-09] MEDS ORDERED: propofoL 200 MG/20 ML VIAL As Ordered ONE (08:41)
[2023-09-09 09:18] LABS: HEMOGLOBIN 12.6 g/dl (12.0-15.5); MEAN CORPUSCULAR HGB CONC 33.2 g/dl (32.0-36.5); MEAN CORPUSCULAR VOLUME 87.6 fl (80.0-96.0); PLATELET COUNT, AUTOMATED 226 10^3/uL (150-450); RED BLOOD COUNT 4.34 10^6/uL (4.00-5.40); WHITE BLOOD COUNT 7.9 10^3/uL (4.0-10.0)
[2023-09-09] MEDS ORDERED: KETOROLAC 60MG 2ML VIAL As Ordered ONE (10:34)
[2023-09-09] MEDS ORDERED: ACETAMINOPHEN 1000MG 100ML IV BAG As Ordered ONE (10:34)
[2023-09-09] MEDS ORDERED: ONDANSETRON 4MG 2ML VIAL As Ordered ONE (10:34)
[2023-09-09] MEDS: LIDOCAINE 1% SDV 30ML VIAL As Ordered ONE (10:56)
[2023-09-09] MEDS ORDERED: HYDROMORPHONE HCL 0.5 MG/ 0.5 ML SYRINGE IV PRN (11:15)
[2023-09-09] MEDS ORDERED: oxyCODONE 5MG TAB PO PRN (11:15)
[2023-09-09] MEDS ORDERED: fentaNYL 100 MCG/2 ML INJECTION IV PRN (11:15)
[2023-09-09] MEDS: ONDANSETRON 4MG 2ML VIAL IV PRN (13:05)
[2023-09-09] MEDS: LR 500 ML IV ONE ×2 (13:20→14:41)
[2023-09-09] MEDS: oxyCODONE 5MG TAB PO PRN (13:44)
[2023-09-09] MEDS: DOXYCYCLINE HYCLATE 100MG TABLET PO ONE (13:44)
[2023-09-09] MEDS: LR 1,000 ML IV ONE (15:50)
[2023-09-09] MEDS: KETOROLAC 30 MG/ML 1ML VIAL IV STA (16:30)
[2023-09-09] MEDS ORDERED: ROCURONIUM BROMIDE 50MG/5ML VIAL As Ordered ONE (18:27)
[2023-09-09] MEDS ORDERED: SUGAMMADEX SODIUM 500 MG/5 ML VIAL (BRIDION) As Ordered ONE (18:28)
[2023-09-09] MEDS: NS 1,000 ML IV SCH (18:30)
[2023-09-09 18:32] LABS: HEMATOCRIT 25.7 % (36.0-47.0); MEAN CORPUSCULAR HEMOGLOBIN 29.9 pg (27.0-33.0); MEAN CORPUSCULAR HGB CONC 33.9 g/dl (32.0-36.5); MEAN CORPUSCULAR VOLUME 88.3 fl (80.0-96.0); PLATELET COUNT, AUTOMATED 148 10^3/uL (150-450); RED BLOOD COUNT 2.91 10^6/uL (4.00-5.40)
[2023-09-09 18:39] LABS: HEMOGLOBIN 8.7 g/dl (12.0-15.5)
[2023-09-09] MEDS: METHYLERGONOVINE MALEATE 0.2MG/ML 1ML VIAL As Ordered ONE (18:58)
[2023-09-09] MEDS ORDERED: ePHEDrine SULFATE 25 MG/5 ML(5MG/ML) SYRINGE As Ordered ONE (19:13)
[2023-09-09] MEDS ORDERED: ONDANSETRON 4MG 2ML VIAL IV PRN (19:30)
[2023-09-09] MEDS ORDERED: ACETAMINOPHEN TAB 650MG DOSE (2X325MG) PO PRN (19:30)
[2023-09-09] MEDS ORDERED: KETOROLAC 30 MG/ML 1ML VIAL IV PRN (19:30)
[2023-09-09 19:58] VITALS: BP 93/50; TEMP 97.3; O2SAT 100
[2023-09-09] MEDS: LR 1,000 ML IV SCH ×2 (20:37→20:55)
[2023-09-09 20:53] VITALS: BP 98/60; TEMP 97.9; O2SAT 95
[2023-09-09] MEDS: ceFAZolin SOD 1 GM in D5W MINI-BAG PLUS 50 ML IV SCH (22:00)
[2023-09-10] VITALS: BP 95/47; TEMP 97.5; O2SAT 99
[2023-09-10 01:00] VITALS: BP 93/45; TEMP 98.2; O2SAT 98
[2023-09-10 02:00] VITALS: BP 96/48; TEMP 98.1; O2SAT 99
[2023-09-10 05:21] VITALS: BP 95/48; TEMP 97.9; O2SAT 99
[2023-09-10 07:21] LABS: HEMATOCRIT 24.4 % (36.0-47.0); HEMOGLOBIN 8.2 g/dl (12.0-15.5); MEAN CORPUSCULAR HEMOGLOBIN 28.9 pg (27.0-33.0); MEAN CORPUSCULAR HGB CONC 33.6 g/dl (32.0-36.5); MEAN CORPUSCULAR VOLUME 85.9 fl (80.0-96.0); PLATELET COUNT, AUTOMATED 139 10^3/uL (150-450); RED BLOOD COUNT 2.84 10^6/uL (4.00-5.40); WHITE BLOOD COUNT 6.9 10^3/uL (4.0-10.0)
[2023-09-10] MEDS ORDERED: ACET1TAB55 PO (07:31)
[2023-09-10] MEDS ORDERED: IBUP-1022 PO (07:31)
[2023-09-10 07:56] LABS: ALBUMIN 2.5 G/DL (3.2-5.2); ALKALINE PHOSPHATASE 29 U/L (46-116); ALT/SGPT 13 U/L (7.0-40); AST/SGOT 11 U/L (<34); BILIRUBIN,TOTAL 0.7 MG/DL (0.3-1.2); BLOOD UREA NITROGEN 7 MG/DL (9-23); CALCIUM LEVEL 8.1 MG/DL (8.5-10.1); CARBON DIOXIDE LEVEL 23 MMOL/L (20-31); CHLORIDE LEVEL 110 MMOL/L (98-107); CREATININE FOR GFR 0.59 MG/DL (0.55-1.30); GLOMERULAR FILTRATION RATE > 60.0 (>60); GLUCOSE, FASTING 95 MG/DL (60-100); POTASSIUM SERUM 3.8 MMOL/L (3.5-5.1); SODIUM LEVEL 139 MMOL/L (136-145); TOTAL PROTEIN 4.9 G/DL (5.7-8.2)
== END 2023-09-10 09:01 | disposition home or self-care (01) ==
LOC: M SDC 08:20 → M ED INP 08:21 → M MSPAV 20:51
PROVIDERS: ADMIT Specialist; ATTEND Specialist
DX: O02.1 Missed abortion (principal); N85.7 Hematometra
CPT/HCPCS: 36415; 59160; 59821; 80053; 85027; 86850; 86900; 86901; 86920; 88233; 88262; 88291; 88305; 96365; 96376; J0131; J0690; J1100; J1885; J2210; J2250; J2405; J3010; P9016; S0191

== ENCOUNTER → 2023-09-19 | Outpatient (CLI) | payer OTHER ==
[~2023-09-19] MED LIST changes: +ACET1TAB55 PO; +IBUP-1022 PO
== END ==
LOC: M WUC 15:32
PROVIDERS: ATTEND Nurse Practitioner Adult Health
DX: J02.9 Acute pharyngitis, unspecified (principal); R06.02 Shortness of breath

== ENCOUNTER → 2024-12-11 | Outpatient (CLI) | payer OTHER ==
[~2024-12-11] MED LIST changes: -IBUP-1022 PO; +IBUP600T42 PO
[2024-12-11 16:07] LABS: PLATELET COUNT, AUTOMATED 296 10^3/uL (150-450)
[2024-12-11 16:32] LABS: HIV 1&2 SCREEN NEGATIVE (NEGATIVE)
[2024-12-11 16:37] LABS: Trichomonas vaginalis (AMP) NOT DETECTED (NEGATIVE)
[2024-12-11 16:40] LABS: HEPATITIS C VIRUS ABY INDEX < 0.02 INDEX (<0.8)
[2024-12-11 17:01] LABS: GC DNA AMPLIFICATION NEGATIVE (NEGATIVE)
== END ==
LOC: M PLALAB 12:35
PROVIDERS: ATTEND Specialist
DX: Z34.81 Encounter for supervision of other normal pregnancy, first trimester (principal)

== ENCOUNTER → 2025-01-02 | Outpatient (CLI) | payer OTHER ==
[2025-01-02 17:44] LABS: LDH LACTATE DEHYDROGENASE 154 U/L (120-246)
[2025-01-02 17:45] LABS: ALT/SGPT 14 U/L (7.0-40); AST/SGOT 13 U/L (<34); CREATININE FOR GFR 0.60 MG/DL (0.55-1.30); GLOMERULAR FILTRATION RATE > 90.0 (>60)
[2025-01-02 17:47] LABS: FREE T4 1.07 NG/DL (0.89-1.76)
[2025-01-02 17:56] LABS: TOTAL PROTEIN,RANDOM URINE 18.8 MG/DL (0.0-14.0)
== END ==
LOC: M PLALAB 14:44
PROVIDERS: ATTEND Nurse Practitioner Family
DX: O09.521 Supervision of elderly multigravida, first trimester (principal); Z86.39 Personal history of other endocrine, nutritional and metabolic disease; Z3A.00 Weeks of gestation of pregnancy not specified